=== PATIENT | male | born 1995 | race Caucasian/White ===

== ENCOUNTER 2019-04-23 21:00 | Inpatient (IN) | payer OTHER, SELFPAY ==
[~2019-04-23] VITALS: Ht 182.9 cm; Wt 74.3 kg
--- NOTE | 2019-04-23 21:30 | NUR ---
PT BIB MOTHER WITH CP AND ROJAS AFTER INJECTING "OLD HEROIN FROM A PIPE MIXED WITH WATER". PT ADMITS TO ABUSING HEROIN AND METH. ROJAS RESOLVED AND WAS DESCRIBED A 'MIGRAINE." CP HAS ALSO RESOLVED BUT PT REPORTS NOW THAT HE "HURTS ALL OVER" AND "MAY BE EXPERIENCING WITHDRAW NOW." INCIDENT OF INJECTING DRUGS WAS AT 1999 TONIGHT. REPORT TO HAYES ORTIZ.
[2019-04-23] MEDS ORDERED: BUPR1FIL5 SL (21:48)
[2019-04-23] MEDS ORDERED: SODIUM CHLORIDE FLUSH 10ML SYR IVF ONE (22:00)
[2019-04-23] MEDS ORDERED: SODIUM CHLORIDE 0.9% 1,000ML IVBOLUS ONE (22:00)
--- NOTE | 2019-04-23 22:08 | NUR ---
PT GIVEN URINAL TO VOID IN TO COLLECT URINE FOR ORDERED DOA. PT MOTHER AT BEDSIDE. PT RESTING CALMLY IN BED AT THIS TIME. ORDERED FLUIDS HANGING.
--- NOTE | 2019-04-23 22:37 | NUR ---
REPORT FROM DIANA COOK. PT RESTING IN GURNEY, AWAKE/ALERT. PT APPEARS PALE. IVF INFUSING. BP/SPO2/ECG MONITORING IN PLACE. SINUS TACH ON MONITOR. MOTHER AT BEDSIDE
[2019-04-23 22:45] LABS: MEAN CORPUSCULAR HEMOGLOBIN 28.3 pg (27.5-34.5); MEAN CORPUSCULAR HGB CONC 33.7 g/dL (33.2-36.2); MEAN PLATELET VOLUME 7.6 fL (7.4-10.4); PLATELET COUNT 131 x10^3/uL (130-400); RED BLOOD COUNT 5.04 x10^6/uL (4.38-5.82); RED CELL DISTRIBUTION WIDTH 14.1 % (9.4-14.8)
[2019-04-23 22:46] LABS: MD YES
--- NOTE | 2019-04-23 22:49 | NUR ---
ERP AWARE OF WBC. NO NEW ORDERS RECEIVED.
[2019-04-23 22:52] LABS: <RBC MORPHOLOGY> NORMAL; LYMPH#(MANUAL) 0.16 x10^3/uL (1-3.4); LYMPHS% (MANUAL) 32 % (22-44); MONOS#(MANUAL) 0.04 x10^3/uL (0.3-2.7); MONOS% (MANUAL) 8 % (2-9); SEGS% (MANUAL) 60 % (42-75)
[2019-04-23 22:56] LABS: <PLATELET ESTIMATE> ADEQUATE; <PLT MORPHOLOGY> NORMAL PLT MORPH
--- NOTE | 2019-04-23 23:02 | NUR ---
UA COLLECTED AND SENT TO LAB. CONSENT SIGNED FOR REQUEST FOR RECORDS FROM [facility].
--- NOTE | 2019-04-23 23:05 | NUR ---
REVERSE ISO IN PLACE.
[2019-04-23 23:10] LABS: CALCIUM 8.6 mg/dL (8.5-10.1)
[2019-04-23 23:28] LABS: AMPHETAMINE SCREEN, URINE Positive (Negative); BARBITURATE SCREEN, URINE Negative (Negative); BENZODIAZEPINE SCREEN, URINE Negative (Negative); CANNABINOID SCREEN, URINE Negative (Negative); COCAINE SCREEN, URINE Negative (Negative); METHADONE SCREEN, URINE Negative (Negative); OPIATE SCREEN, URINE Positive (Negative)
[2019-04-23 23:34] LABS: ALANINE AMINOTRANSFERASE 94 U/L (12-78); ALKALINE PHOSPHATASE 124 U/L (45-117); ANION GAP 10 mmol/L (5-15); CHLORIDE 108 mmol/L (98-107); TOTAL PROTEIN 6.6 g/dL (6.4-8.2)
[2019-04-23 23:37] LABS: TROPONIN I < 0.015 ng/mL (0.000-0.045)
[2019-04-24] MEDS ORDERED: MAGNESIUM SULFATE 1 GM in SODIUM CHLORIDE 0.9% 50 ML IV ONE
[2019-04-24] MEDS ORDERED: PIPERACILLIN/TAZO/PMX 3.375GM 50 ML IV ONE
[2019-04-24] MEDS ORDERED: PIPERACILLIN/TAZO/PMX 3.375GM 50 ML ONE
[2019-04-24] MEDS ORDERED: POTASSIUM CHLORIDE 10% 40 MEQ/30 ML UDC PO ONE
[2019-04-24 00:06] LABS: HCT (SEDRATE) 42.4 % (39.2-51.8)
--- NOTE | 2019-04-24 00:08 | NUR ---
ABX INITIATED. BC X 2 DRAWN PRIOR TO ADMIN. ADDITIONAL MEDICATIONS REQUESTED FROM PHARMACY
[2019-04-24] MEDS ORDERED: VANCOMYCIN 1,500 MG in SODIUM CHLORIDE 0.9% 250 ML IV ONE (00:30)
--- NOTE | 2019-04-24 00:50 | NUR ---
ADDITIONAL PIV ACCESS OBTAINED. PT MEDICATED PER EMAR.
--- NOTE | 2019-04-24 00:54 | NUR ---
REPORT TO DIANA CAMEJO. US AT BEDSIDE. PT TO TRANSFER TO FLOOR ONE US IS COMPLETE
[2019-04-24] MEDS ORDERED: morphine SULFATE 10 MG/ML, 1ML IVPush PRN (01:00)
[2019-04-24] MEDS ORDERED: ONDANSETRON ODT 4 MG PO PRN (01:00)
[2019-04-24] MEDS ORDERED: hydrALAzine 20 MG/ML, 1ML IVPush PRN (01:00)
[2019-04-24] MEDS ORDERED: [UNRECOGNIZED DRUG - OTHER] SL SCH (01:00)
[2019-04-24] MEDS ORDERED: PROMETHAZINE 25 MG/ML, 1ML IM PRN (01:00)
[2019-04-24] MEDS ORDERED: VANCOMYCIN PER PHARMACY MC PRN ×2 (01:00)
[2019-04-24] MEDS ORDERED: BISACODYL 10 MG SUPP PR PRN (01:00)
[2019-04-24] MEDS ORDERED: OXYcodone IR 5MG TABLET PO PRN (01:00)
[2019-04-24] MEDS ORDERED: NALOXONE HCL SL SCH (01:00)
[2019-04-24] MEDS ORDERED: POTASSIUM CHLORIDE 40 MEQ in SODIUM CHLORIDE 0.9% 500 ML IV ONE (01:00)
[2019-04-24] MEDS ORDERED: ONDANSETRON 2MG/ML, 2ML IVPush PRN (01:00)
[2019-04-24] MEDS ORDERED: DOCUSATE 100 MG CAPSULE PO PRN (01:00)
[2019-04-24] MEDS ORDERED: POLYETHYLENE GLYCOL 17 GM PACKET PO PRN (01:00)
[2019-04-24] MEDS ORDERED: BUPRENORPHINE HCL SL SCH (01:00)
--- NOTE | 2019-04-24 01:14 | NUR ---
US NO LONGER AT BEDSIDE. PT TRANSFERED AT THIS TIME
[2019-04-24 01:19] LABS: INTERNATIONAL NORMALIZED RATIO 1.15 (0.93-1.1)
[2019-04-24 01:29] LABS: FREE T4 (FREE THYROXINE) 1.13 ng/dL (0.76-1.46); THYROID STIMULATING HORMONE 0.292 mIU/L (0.358-3.740)
[2019-04-24 01:30] VITALS: BP 111/67
[2019-04-24 02:37] LABS: MICROSCOPIC NOT IND
[2019-04-24] MEDS: HEPARIN 5,000 UNITS/ML, 1ML SQ SCH ×3 (02:38→17:24)
[2019-04-24] MEDS: SODIUM CHLORIDE 0.9% 1,000 ML IV SCH ×2 (02:39→12:55)
[2019-04-24 02:43] LABS: CULTURE INDICATED? NO
[2019-04-24 03:14] VITALS: BP 111/67
[2019-04-24 03:22] LABS: ALANINE AMINOTRANSFERASE 149 U/L (12-78); ALBUMIN 3.1 g/dL (3.4-5.0); ANION GAP 6 mmol/L (5-15); CALCIUM 7.9 mg/dL (8.5-10.1); CHLORIDE 112 mmol/L (98-107); CREATININE 0.99 mg/dL (0.7-1.3)
[2019-04-24 03:25] LABS: ALKALINE PHOSPHATASE 107 U/L (45-117); CHOL/HDL RATIO 1.9; CHOLESTEROL, TOTAL 90 mg/dL (140-239); HDL CHOL % 53 % (26-37); HDL CHOLESTEROL (DIRECT) 48 mg/dL (40-60); LDL CHOLESTEROL,CALCULATED 33 mg/dL (54-169); LDL/HDL RATIO 0.7 (0.5-3.0); TOTAL PROTEIN 5.4 g/dL (6.4-8.2); TRIGLYCERIDES 46 mg/dL (50-200); VLDL CHOLESTEROL 9 mg/dL (0-25)
[2019-04-24 04:25] LABS: MD SCAN; MEAN CORPUSCULAR HEMOGLOBIN 28.2 pg (27.5-34.5); MEAN CORPUSCULAR HGB CONC 33.3 g/dL (33.2-36.2); MEAN CORPUSCULAR VOLUME 84.5 fL (81-97); MEAN PLATELET VOLUME 7.6 fL (7.4-10.4); PLATELET COUNT 99 x10^3/uL (130-400); RED BLOOD COUNT 4.61 x10^6/uL (4.38-5.82); RED CELL DISTRIBUTION WIDTH 14.2 % (9.4-14.8)
[2019-04-24 04:26] LABS: BASOPHILS % (AUTO) 0 % (0-1); EOSINOPHILS # (AUTO) 0.05 x10^3/uL (0-0.4); EOSINOPHILS % (AUTO) 2 % (1-7); LYMPHOCYTES # (AUTO) 0.16 x10^3/uL (1-3.4); LYMPHOCYTES % (AUTO) 6 % (22-44); MONOCYTES % (AUTO) 0 % (2-9); NEUTROPHILS # (AUTO) 2.47 x10^3/uL (1.8-6.8); NEUTROPHILS % (AUTO) 92 % (42-75)
[2019-04-24] MEDS ORDERED: PHARMACOKINETIC CONSULTATION MC ONE (05:30)
[2019-04-24] MEDS ORDERED: PHARMACOKINETIC MONITORING MC PRN (05:30)
[2019-04-24] MEDS: PIPERACILLIN/TAZO/PMX 3.375GM 50 ML IV SCH ×4 (06:04→23:42)
[2019-04-24 07:30] VITALS: BP 101/65
[2019-04-24] MEDS: BUPRENORPHINE HCL/NALOXONE 8-2MG FILM SL SCH (09:07)
[2019-04-24] MEDS ORDERED: ACETAMINOPHEN 325 MG TABLET PO PRN (10:30)
[2019-04-24] MEDS: VANCOMYCIN 1,400 MG in SODIUM CHLORIDE 0.9% 250 ML IV SCH (12:55)
[2019-04-24 14:00] VITALS: BP 108/72
[2019-04-24 20:00] VITALS: BP 99/51
[2019-04-25] MEDS: HEPARIN 5,000 UNITS/ML, 1ML SQ SCH ×3 (01:07→17:57)
[2019-04-25] MEDS: VANCOMYCIN 1,400 MG in SODIUM CHLORIDE 0.9% 250 ML IV SCH ×2 (01:07→13:25)
[2019-04-25 01:11] VITALS: BP 114/64
[2019-04-25] MEDS: PIPERACILLIN/TAZO/PMX 3.375GM 50 ML IV SCH ×4 (06:11→23:52)
[2019-04-25 06:22] LABS: ALANINE AMINOTRANSFERASE 91 U/L (12-78); ALBUMIN 2.9 g/dL (3.4-5.0); ANION GAP 9 mmol/L (5-15); CHLORIDE 110 mmol/L (98-107); CREATININE 0.96 mg/dL (0.7-1.3)
[2019-04-25 06:24] LABS: ALKALINE PHOSPHATASE 89 U/L (45-117); BILIRUBIN,TOTAL 0.9 mg/dL (0.2-1.0); TOTAL PROTEIN 5.5 g/dL (6.4-8.2)
[2019-04-25 08:00] VITALS: BP 107/68
[2019-04-25] MEDS ORDERED: D5%-0.45NACL+KCL 20MEQ 1,000 ML IV SCH (08:30)
[2019-04-25 08:42] VITALS: BP 119/71
[2019-04-25] MEDS: BUPRENORPHINE HCL/NALOXONE 8-2MG FILM SL SCH (08:51)
[2019-04-25 13:45] VITALS: BP 112/67
[2019-04-25 20:48] VITALS: BP 109/71
[2019-04-26] MEDS: HEPARIN 5,000 UNITS/ML, 1ML SQ SCH ×3 (01:05→17:29)
[2019-04-26] MEDS: VANCOMYCIN 1,400 MG in SODIUM CHLORIDE 0.9% 250 ML IV SCH ×2 (01:05→13:33)
[2019-04-26 05:32] LABS: MEAN CORPUSCULAR HGB CONC 32.7 g/dL (33.2-36.2); MEAN CORPUSCULAR VOLUME 85.6 fL (81-97); MEAN PLATELET VOLUME 8.2 fL (7.4-10.4); PLATELET COUNT 104 x10^3/uL (130-400); RED BLOOD COUNT 4.59 x10^6/uL (4.38-5.82); RED CELL DISTRIBUTION WIDTH 14.4 % (9.4-14.8)
[2019-04-26] MEDS: PIPERACILLIN/TAZO/PMX 3.375GM 50 ML IV SCH ×3 (05:40→17:29)
[2019-04-26 05:42] LABS: ALANINE AMINOTRANSFERASE 63 U/L (12-78); ALBUMIN 2.8 g/dL (3.4-5.0); ANION GAP 5 mmol/L (5-15); CHLORIDE 114 mmol/L (98-107); CREATININE 0.89 mg/dL (0.7-1.3)
[2019-04-26 05:45] LABS: ALKALINE PHOSPHATASE 80 U/L (45-117); BILIRUBIN,TOTAL 0.5 mg/dL (0.2-1.0); TOTAL PROTEIN 5.6 g/dL (6.4-8.2)
[2019-04-26 05:48] LABS: MD YES
[2019-04-26 05:53] LABS: <RBC MORPHOLOGY> NORMAL; BAND#(MANUAL) 1.85 x10^3/uL; BANDS%(MANUAL) 12 % (0-7); EOS#(MANUAL) 0.77 x10^3/uL (0.0-0.4); EOS% (MANUAL) 5 % (1-7); LYMPH#(MANUAL) 2.62 x10^3/uL (1-3.4); LYMPHS% (MANUAL) 17 % (22-44); SEG#(MANUAL) 10.16 x10^3/uL (1.8-6.8); SEGS% (MANUAL) 66 % (42-75)
[2019-04-26 05:55] LABS: <PLATELET ESTIMATE> DECREASED; <PLT MORPHOLOGY> NORMAL PLT MORPH
[2019-04-26 07:20] VITALS: BP 107/68
[2019-04-26] MEDS: BUPRENORPHINE HCL/NALOXONE 8-2MG FILM SL SCH (08:35)
[2019-04-26] MEDS ORDERED: LORATADINE 10 MG TABLET PO PRN (09:30)
[2019-04-26 14:00] VITALS: BP 118/72
[2019-04-27] MEDS: PIPERACILLIN/TAZO/PMX 3.375GM 50 ML IV SCH ×5 (00:18→23:49)
[2019-04-27] MEDS: HEPARIN 5,000 UNITS/ML, 1ML SQ SCH ×3 (01:25→17:46)
[2019-04-27] MEDS: VANCOMYCIN 1,400 MG in SODIUM CHLORIDE 0.9% 250 ML IV SCH ×2 (01:25→13:20)
[2019-04-27 01:34] VITALS: BP 114/70
[2019-04-27 05:51] LABS: MEAN CORPUSCULAR HEMOGLOBIN 27.9 pg (27.5-34.5); MEAN CORPUSCULAR HGB CONC 33.2 g/dL (33.2-36.2); MEAN PLATELET VOLUME 8.4 fL (7.4-10.4); PLATELET COUNT 135 x10^3/uL (130-400); RED BLOOD COUNT 4.67 x10^6/uL (4.38-5.82); RED CELL DISTRIBUTION WIDTH 14.8 % (9.4-14.8)
[2019-04-27 05:56] LABS: ANION GAP 4 mmol/L (5-15); CALCIUM 8.3 mg/dL (8.5-10.1); CHLORIDE 111 mmol/L (98-107); CREATININE 0.95 mg/dL (0.7-1.3)
[2019-04-27 06:07] LABS: MD YES
[2019-04-27 06:09] LABS: <PLATELET ESTIMATE> ADEQUATE; <PLT MORPHOLOGY> NORMAL PLT MORPH; <RBC MORPHOLOGY> NORMAL; BANDS%(MANUAL) 11 % (0-7); EOS#(MANUAL) 0.58 x10^3/uL (0.0-0.4); EOS% (MANUAL) 4 % (1-7); LYMPHS% (MANUAL) 20 % (22-44); METAMYELOCYTES# (MANUAL) 0.15 x10^3/uL (0-0); METAMYELOCYTES% (MANUAL) 1 % (0-1); MONOS#(MANUAL) 0.44 x10^3/uL (0.3-2.7); MONOS% (MANUAL) 3 % (2-9); SEG#(MANUAL) 8.85 x10^3/uL (1.8-6.8); SEGS% (MANUAL) 61 % (42-75)
[2019-04-27 08:00] VITALS: BP 119/83
[2019-04-27] MEDS: BUPRENORPHINE HCL/NALOXONE 8-2MG FILM SL SCH (08:58)
[2019-04-27 13:26] VITALS: BP 119/76
[2019-04-27 18:59] VITALS: BP 125/83
[2019-04-28] MEDS: VANCOMYCIN 1,400 MG in SODIUM CHLORIDE 0.9% 250 ML IV SCH ×2 (01:15→13:01)
[2019-04-28] MEDS: HEPARIN 5,000 UNITS/ML, 1ML SQ SCH ×2 (01:19→09:27)
[2019-04-28 01:39] VITALS: BP 104/65
[2019-04-28 05:16] LABS: ANION GAP 6 mmol/L (5-15); CHLORIDE 107 mmol/L (98-107); MEAN CORPUSCULAR HEMOGLOBIN 27.3 pg (27.5-34.5); MEAN CORPUSCULAR HGB CONC 32.6 g/dL (33.2-36.2); MEAN CORPUSCULAR VOLUME 83.6 fL (81-97); MEAN PLATELET VOLUME 8.1 fL (7.4-10.4); PLATELET COUNT 152 x10^3/uL (130-400); RED BLOOD COUNT 4.86 x10^6/uL (4.38-5.82); RED CELL DISTRIBUTION WIDTH 14.2 % (9.4-14.8)
[2019-04-28 05:17] LABS: CREATININE 0.99 mg/dL (0.7-1.3)
[2019-04-28 05:38] LABS: MD YES
[2019-04-28 05:41] LABS: BAND#(MANUAL) 0.23 x10^3/uL; BANDS%(MANUAL) 2 % (0-7); EOS#(MANUAL) 0.68 x10^3/uL (0.0-0.4); EOS% (MANUAL) 6 % (1-7); METAMYELOCYTES# (MANUAL) 0.11 x10^3/uL (0-0); METAMYELOCYTES% (MANUAL) 1 % (0-1); MONOS#(MANUAL) 0.68 x10^3/uL (0.3-2.7); MONOS% (MANUAL) 6 % (2-9); REACTIVE LYMPHS # (MANUAL) 0.11 x10^3/uL (0-0); REACTIVE LYMPHS % (MANUAL) 1 % (0-0)
[2019-04-28 05:43] LABS: LYMPH#(MANUAL) 2.94 x10^3/uL (1-3.4); LYMPHS% (MANUAL) 26 % (22-44); SEG#(MANUAL) 6.55 x10^3/uL (1.8-6.8); SEGS% (MANUAL) 58 % (42-75)
[2019-04-28 05:45] LABS: <PLATELET ESTIMATE> ADEQUATE; <PLT MORPHOLOGY> NORMAL PLT MORPH; <RBC MORPHOLOGY> NORMAL
[2019-04-28] MEDS: PIPERACILLIN/TAZO/PMX 3.375GM 50 ML IV SCH ×2 (06:12→11:45)
[2019-04-28] MEDS: BUPRENORPHINE HCL/NALOXONE 8-2MG FILM SL SCH (09:27)
[2019-04-28 13:49] VITALS: BP 117/73
[2019-04-28] MEDS ORDERED: LEVO750T26 PO (15:03)
[2019-04-28 16:04] VITALS: BP 128/81
== END 2019-04-28 16:50 | disposition home or self-care (01) | DRG 872 ==
LOC: ED 22:43 → 4NOR 04-24 01:43 → DCLOUNGE 04-28 16:42
PROVIDERS: ADMIT Internal Medicine; ATTEND Internal Medicine
DX: A41.9 Sepsis, unspecified organism (principal); F11.20 Opioid dependence, uncomplicated; D70.9 Neutropenia, unspecified; E87.6 Hypokalemia; I36.1 Nonrheumatic tricuspid (valve) insufficiency; F15.10 Other stimulant abuse, uncomplicated; F17.210 Nicotine dependence, cigarettes, uncomplicated; K76.0 Fatty (change of) liver, not elsewhere classified; Z86.19 Personal history of other infectious and parasitic diseases; Z86.79 Personal history of other diseases of the circulatory system
CPT/HCPCS: 36415; 71046; 76700; 80048; 80053; 80061; 80074; 80202; 80307; 81003; 83036; 83605; 83690; 83735; 84100; 84145; 84439; 84443; 84484; 85025; 85610; 85651; 87040; 87806; 93005; 93308; 93321; 93325; 96365; 96367; 96368; G0378; J1644; J2543; J3370; J3475; J3480; G0475; J7030; J7040; J7050

== ENCOUNTER 2021-02-24 10:03 | Emergency (ER) | payer SELFPAY ==
[~2021-02-24] VITALS: Ht 182.9 cm; Wt 68.9 kg
[~2021-02-24 10:03] MED LIST: BUPR1FIL5 SL; LEVO750T26 PO
[2021-02-24 10:57] LABS: MEAN CORPUSCULAR HEMOGLOBIN 28.7 pg (27.5-34.5); MEAN CORPUSCULAR HGB CONC 34.8 g/dL (33.2-36.2); MEAN PLATELET VOLUME 7.2 fL (7.4-10.4); PLATELET COUNT 201 x10^3/uL (130-400); RED BLOOD COUNT 4.73 x10^6/uL (4.38-5.82); RED CELL DISTRIBUTION WIDTH 13.2 % (9.4-14.8)
[2021-02-24] MEDS ORDERED: SODIUM CHLORIDE 0.9% 1,000ML IVBOLUS ONE (11:00)
[2021-02-24] MEDS ORDERED: SODIUM CHLORIDE FLUSH 10ML SYR IVF ONE (11:00)
[2021-02-24 11:09] LABS: ALBUMIN 3.9 g/dL (3.4-5.0); ANION GAP 7 mmol/L (5-15); CALCIUM 8.8 mg/dL (8.5-10.1); CHLORIDE 102 mmol/L (98-107); CREATININE 0.93 mg/dL (0.7-1.3)
[2021-02-24 11:22] LABS: MD YES
[2021-02-24 11:23] LABS: BAND#(MANUAL) 0.86 x10^3/uL; BANDS%(MANUAL) 8 % (0-7); BASOS#(MANUAL) 0.11 x10^3/uL (0-0.1); BASOS% (MANUAL) 1 % (0-1); EOS#(MANUAL) 0.22 x10^3/uL (0.0-0.4); EOS% (MANUAL) 2 % (1-7); LYMPH#(MANUAL) 0.22 x10^3/uL (1-3.4); LYMPHS% (MANUAL) 2 % (22-44); METAMYELOCYTES# (MANUAL) 0.11 x10^3/uL (0-0); METAMYELOCYTES% (MANUAL) 1 % (0-1); MONOS#(MANUAL) 0.43 x10^3/uL (0.3-2.7); MONOS% (MANUAL) 4 % (2-9); MYELOCYTES# (MANUAL) 0.11 x10^3/uL (0-0); MYELOCYTES% (MANUAL) 1 % (0-0); SEG#(MANUAL) 8.75 x10^3/uL (1.8-6.8); SEGS% (MANUAL) 81 % (42-75)
[2021-02-24 11:24] LABS: <PLATELET ESTIMATE> ADEQUATE; <PLT MORPHOLOGY> NORMAL PLT MORPH; <RBC MORPHOLOGY> NORMAL
--- NOTE | 2021-02-24 11:55 | NUR ---
PHARMACY CALLED ABOUT MEDICATION. PT MEDS TO BE TUBED.
[2021-02-24] MEDS ORDERED: BICILLIN-LA 2,400,000 UNITS/4 ML IM ONE (12:00)
--- NOTE | 2021-02-24 12:30 | NUR ---
TIRE SHOP MANAGER PER MAR.
[2021-02-24 12:31] VITALS: BP 110/63
== END 2021-02-24 11:32 | disposition home or self-care (01) ==
LOC: ED 11:25
DX: J02.0 Streptococcal pharyngitis (principal)
CPT/HCPCS: 36415; 80048; 82040; 85025; 87880; 96372; 99283; J0561; J7030

== ENCOUNTER 2021-05-03 06:44 | Emergency (ER) | payer SELFPAY ==
[~2021-05-03] VITALS: Ht 182.9 cm; Wt 70.0 kg
[2021-05-03] MEDS ORDERED: SODIUM CHLORIDE 0.9% 1,000ML IVBOLUS ONE (07:00)
[2021-05-03] MEDS ORDERED: SODIUM CHLORIDE FLUSH 10ML SYR IVF ONE (07:00)
--- NOTE | 2021-05-03 07:07 | NUR ---
REPORT TAKEN FROM DIANA MICHEL AT BEDSIDE, CARE ASSUMED AT THIS TIME.
[2021-05-03 07:19] LABS: BASOPHILS % (AUTO) 0 % (0-1); EOSINOPHILS % (AUTO) 2 % (1-7); LYMPHOCYTES % (AUTO) 35 % (22-44); MEAN CORPUSCULAR HGB CONC 33.9 g/dL (33.2-36.2); MONOCYTES % (AUTO) 2 % (2-9); NEUTROPHILS % (AUTO) 60 % (42-75); PLATELET COUNT 352 x10^3/uL (130-400); RED CELL DISTRIBUTION WIDTH 14.3 % (9.4-14.8)
[2021-05-03 07:31] LABS: ALBUMIN 3.9 g/dL (3.4-5.0); ANION GAP 8 mmol/L (5-15); CALCIUM 8.7 mg/dL (8.5-10.1); CHLORIDE 106 mmol/L (98-107); CREATININE 1.01 mg/dL (0.7-1.3)
--- NOTE | 2021-05-03 07:48 | NUR ---
PT PRESENTS TO ED WITH C/O SHORTNESS OF BREATH FOLLOWING IV METH/HEROIN COMBO THIS AM. PT'S GIRLFRIEND GAVE PT NARCAN HAT BRIM CURLER SHE SUSPECTED OVERDOSE, HOWEVER PT STATES HE NEVER LOST CONCIOUSNESS. PT IS A&OX4, RESPS EVEN AND UNLABORED. ALL MONITORS IN PLACE. PT STATES "I FEEL BETTER NOW." SPO2 SATURATING >95% ON ROOM AIR, RESP RATE 14-16. PT DENIES CHEST PAIN. ORAL TEMP 95.4, SKIN WARM TO TOUCH. EDOR JULIAN NOTIFIED. YULIA WARMER IN PLACE, WARM BLANKETS IN PLACE. CALL LIGHT IN REACH. ALL RESULTS BACK, CHART UP FOR RECHECK.
--- NOTE | 2021-05-03 08:00 | NUR ---
late entry for 0800 d/t patient care: pt denies SI/SA, denies any suide attempt over lifetime. pt states drug use is recreational, open to rehab. resources and counseling provided.
[2021-05-03 08:20] VITALS: BP 126/83
--- NOTE | 2021-05-03 09:09 | NUR ---
pt given water, tolerated well. pt is a&o, resps even and unlabored. nsr on customer support specialist with no ectopy. pt given meal tray. pupils equal, round and reactive (brisk), 3mm bilaterally.
--- NOTE | 2021-05-03 10:13 | NUR ---
PIV dc'd with tip intact. pt a&ox4, resps even and unlabored at rate 14-18. spo2 maintained >95% on room air. pt a&o, resps even and unlabored. nsr on monitoring manager with no ectopy. pt given dc instructions and script, educated regarding rx for suboxone. pt educated not to drive, states mother is coming to pick him up. girlfriend with pt at time of discharge. pt ambulatory to dc desk with steady gait, all questions answered.
== END 2021-05-03 10:14 | disposition home or self-care (01) ==
LOC: ED 08:51
DX: T43.621A Poisoning by amphetamines, accidental (unintentional), initial encounter (principal); R00.0 Tachycardia, unspecified; R07.9 Chest pain, unspecified; Y92.89 Other specified places as the place of occurrence of the external cause
CPT/HCPCS: 36415; 71045; 80048; 82040; 85025; 93005; 96360; 99285; J7030